=== PATIENT | female | born 1995 | race Caucasian/White ===

== ENCOUNTER 2016-06-09 19:56 | Inpatient (IN) ==
[2016-06-09] MEDS ORDERED: ONDANSETRON 4 MG/2 ML VIAL IV PRN (20:23)
[2016-06-09] MEDS ORDERED: BUTORPHANOL 2 MG/ML VIAL IV PRN (20:23)
[2016-06-09] MEDS ORDERED: fentaNYL 2 MCG/ROPIV 0.2% EPID 150 ML EPIDURAL SCH (20:42)
[2016-06-09] MEDS ORDERED: ePHEDrine 50 MG/ML AMP IV PRN (20:42)
[2016-06-09] MEDS ORDERED: CITRIC ACID/SODIUM CITRATE 30 ML UDCUP PO ONE (20:42)
[2016-06-09] MEDS ORDERED: FAMOTIDINE 20 MG/2 ML VIAL IV ONE (20:42)
[2016-06-09] MEDS: LACTATED RINGERS 1,000 ML IV SCH ×2 (20:43→21:45)
[2016-06-09 20:45] LABS: Basophils % 0.1 % (0.0-0.8); Eosinophils % 0.3 % (0.00-10.9); Hematocrit 29.8 VOL% (35.7-47.0); Hemoglobin 8.4 GM/DL (12.0-16.0); Immature Granulocytes % 1.9 %; Immature Granulocytes Absolute 0.21 #; Lymphocytes % 18.6 % (21.3-54.2); Mean Corpuscular HGB Conc 28.2 GM/DL (32-36); Mean Corpuscular Hemoglobin 23 PG (27-34); Mean Corpuscular Volume 81.6 FL (87-102); Monocytes # 0.7 10*3/uL (0.11-0.8); Monocytes % 6.4 % (1.7-12.7); Neutrophils # 7.9 10*3/uL (1.4-7.4); Neutrophils % 72.7 % (38.7-73.9); Platelet Count 209 T/CUMM (130-400); Red Blood Count 3.65 MC/CUMM (3.8-5.5); Red Cell Distribution Width 16.4 % (9.3-17.3); White Blood Count 10.8 T/CUMM (4-12)
[2016-06-09] MEDS ORDERED: AMPICILLIN INJ 2,000 MG in SODIUM CHLORIDE 0.9% 100 ML IV SCH (21:00)
[2016-06-09 22:23] LABS: Apearance,Urine CLEAR (Clear); Bilirubin,Urine Negative (Negative); Blood, Urine Negative (Negative); Glucose,Urine (UA) Negative (Negative); Ketones,Urine Negative (Negative); Mucus,Urine Occasional /LPF (Occasional); Nitrite,Urine Negative (Negative); Protein,Urine Negative; Squamous Epithelial Cell,Urine Occasional /HPF (0-10); Urine Color Yellow (Yellow); Urine Specific Gravity 1.017 (1.001-1.035); Urine Urobilinogen < 2.0 EU/DL (0.2-1.0); WBC,Urine 8 /HPF (0-6)
[2016-06-09 22:27] LABS: Barbiturates Screen,Urine Negative (Negative); Benzodiazepines Screen,Urine Negative (Negative); Cannabinoid Screen,Urine Negative (Negative); Opiate Screen,Urine Negative (Negative); Phencyclidine Screen,Urine Negative (Negative)
[2016-06-09] MEDS ORDERED: miSOPROStol 200 MCG TABLET ONE (22:37)
[2016-06-09] MEDS ORDERED: OXYTOCIN/LR 20 UNIT/1,000 ML BAG IV ONE ×2 (22:37→23:24)
[2016-06-09 22:53] LABS: HIV Antigen/Antibody Result Nonreactive (Nonreactive)
[2016-06-09] MEDS ORDERED: OXYTOCIN/LR 20 UNIT/1,000 ML BAG IV SCH (23:00)
[2016-06-09 23:04] LABS: Hepatitis B Surface Ag Quant 0.11 Index; Hepatitis B Surface Ag Result Negative (Negative)
[2016-06-09] MEDS ORDERED: ACETAMINOPHEN 325 MG TABLET PO PRN (23:24)
[2016-06-09] MEDS ORDERED: DIPH/TET/ACEL PERT BOOSTER VACCINE 0.5 ML VIAL IM ONE (23:24)
[2016-06-09] MEDS ORDERED: LANOLIN 50% CREAM 0.3 OZ TUBE TOP PRN (23:24)
[2016-06-09] MEDS ORDERED: oxyCODONE/ACETAMINOPHEN 5-325 MG TABLET PO PRN (23:24)
[2016-06-09] MEDS ORDERED: HYDROCORTISONE 2.5% RECTAL CREAM 30 GM TUBE TOP PRN (23:24)
[2016-06-09] MEDS ORDERED: BENZOCAINE 20%/MENTHOL 0.5% SPRAY 56 GM CAN TOP PRN (23:24)
[2016-06-09] MEDS ORDERED: RHO(D) IMMUNE GLOBULIN 300 MCG SYRINGE IM ONE (23:24)
[2016-06-09] MEDS ORDERED: WITCH HAZEL PADS 100/JAR TOP PRN (23:24)
[2016-06-09] MEDS ORDERED: MEASLES/MUMPS/RUBELLA VACCINE 0.5 ML VIAL SUBCUT ONE (23:24)
[2016-06-09] MEDS ORDERED: BISACODYL 10 MG SUPP RECTAL PRN (23:24)
--- NOTE | 2016-06-09 23:29 | Operative Note ---
Date of procedure: 06/09/16 Pre-op diagnosis: at 37 weeks, active labor Post-op diagnosis: same (with parturiton, occuput posterior) Procedure: Vaccuum assisted vaginal delivery The patient was prepped and drapped in the dorsal lithotomy position. Expulsive efforts were encouraged until the head was at a +2 station and arrested due to an occiput posterior presentation. The MitiVac was applied and the head rotated and delivered. The perineum was supported with the left hand while the delivery of the head controlled by the right hand. The naseopharynx was suctioned with a bulb syringe as soon as the head delivered. The head was directed downward and the anterior shoulder delivered. The head was lifted and the posterior shoulder delivered. The infant was delivered to the hips and held in place while the umbilical cord was clamped and cut. The remainder of the was delivered and then transferred to the warmer. Cord blood was obtained and the placenta allowed to seperated spontaneously. The placenta was then delivered Tamica flores. An intrauterine exam was done and pitocin administered. The cervix, vagina and perineum were examined and no lacerations found. She was returned to the supine position and her recovery begun. Anesthesia: epidural Surgeon / Physician: Guillaume Silva Estimated blood loss: none, other Specimens: other (placenta) Condition: stable Disposition: floor Results - Labs CBC & BMP: 06/09/16 20:35 Discharge Plan - Discharge Medications No Action Vits #90/Iron Fum/FA [ Formula Tablet] 1 tablet PO DAILY - Follow Up or Referral - Forms/Instructions
[2016-06-10] MEDS: IBUPROFEN 800 MG TABLET PO PRN ×2 (05:03→12:16)
[2016-06-10 05:26] LABS: Basophils % 0.1 % (0.0-0.8); Hemoglobin 7.5 GM/DL (12.0-16.0); Immature Granulocytes % 0.9 %; Immature Granulocytes Absolute 0.13 #; Lymphocytes % 13.4 % (21.3-54.2); Mean Corpuscular HGB Conc 28.8 GM/DL (32-36); Mean Corpuscular Hemoglobin 23 PG (27-34); Mean Corpuscular Volume 80.5 FL (87-102); Mean Platelet Volume 10.4 FL (9.6-12.0); Monocytes # 1.2 10*3/uL (0.11-0.8); Monocytes % 8.3 % (1.7-12.7); Neutrophils # 11.5 10*3/uL (1.4-7.4); Neutrophils % 77.3 % (38.7-73.9); Platelet Count 194 T/CUMM (130-400); Red Blood Count 3.23 MC/CUMM (3.8-5.5); Red Cell Distribution Width 16.3 % (9.3-17.3); White Blood Count 14.9 T/CUMM (4-12)
[2016-06-10 06:03] LABS: Microcytosis 1+; Platelet Estimate Normal
[2016-06-10 06:05] LABS: Anisocytosis 1+
[2016-06-10] MEDS: DOCUSATE SODIUM 100 MG CAPSULE PO SCH ×2 (12:16→21:00)
[2016-06-10] MEDS: oxyCODONE/ACETAMINOPHEN 5-325 MG TABLET PO PRN (22:27)
[2016-06-11] MEDS: IBUPROFEN 800 MG TABLET PO PRN (09:58)
[2016-06-11] MEDS: DOCUSATE SODIUM 100 MG CAPSULE PO SCH (09:59)
--- NOTE | 2016-06-11 13:36 | Discharge Summary ---
Hospital Course - Hospital Course Hospital Course: This patient was admitted in active labor without a significant history. Labor slowed down significantly due to a persistent occiput posterior arrest that was assisted with a vacuum extraction. Baby was delivered in good condition. There was a third-degree extension which was repaired in the routine fashion. Her postoperative course has been uneventful and she is discharged today with home instructions and prescriptions. Diagnosis - Discharge Diagnosis (1) Vaginal delivery Status: Acute (2) Occiput posterior arrest Status: Acute (3) Laceration, obstetrical, third degree Status: Acute Specialty Discharge - Follow Up or Referrals Follow up with: Dorian Tariq MD [Primary Care Provider] - 1 Month (Call to schedule appt with Dr. Tariq for 4-6 weeks post delivery. ) Discharge Plan - Discharge Medications New HYDROcodone/ACETAMIN 5-325 [[place] 5-325] 1 - 2 tablet PO Q6H PRN #30 tablet PRN Reason: Pain Severe (8-10) Ibuprofen 600 mg PO Q4-6H PRN #30 tablet PRN Reason: Abdominal Pain No Action Vits #90/Iron Fum/FA [ Formula Tablet] 1 tablet PO DAILY - Follow Up or Referral Follow Up: Dorian Tariq MD [Primary Care Provider] - 1 Month (Call to schedule appt with Dr. Tariq for 4-6 weeks post delivery. ) - Forms/Instructions Instructions: Vaginal Delivery (DC), Bleeding (DC) Exam - Constitutional Vitals: Period Temp Pulse Resp BP Sys/Sarmiento Pulse Ox Last 24 Hr 97.5 F-97.9 F 63-93 18-20 97-115/52-73 General appearance: no acute distress - Head Head exam: Present: normal inspection - Respiratory Respiratory exam: Present: clear to auscultation bilaterally. Absent: accessory muscle use - Cardiovascular Cardiovascular exam: Present: regular rate and rhythm - GI/Abdominal GI/Abdominal exam: Present: normal bowel sounds, soft. Absent: guarding, tenderness - Extremities Exam Extremities exam: Present: normal inspection - Back Exam Back exam: Present: normal inspection - Neurological Exam Neurological exam: Present: alert, oriented X3 - Psychiatric Psychiatric exam: Present: normal affect, normal mood - Skin Skin exam: Present: normal color, warm, dry DS: Provider Date of admission: 06/09/16 21:54 Primary care physician: Dorian Tariq MD Attending physician on admission: Guillaume Silva DO Consults: 06/09/16 20:23 Consult to Anesthesiology [CONS] Routine Consulting Provider: Reason for Anesthesiology: Epidural Consult Comment: Epidural for pain managment 06/09/16 23:24 Consult to Screening Representative [CONS] Routine Consult Screening Representative: Breast Feeding Discharging clinician: Guillaume Silva DO Expected date of discharge: 06/11/16
[2016-06-11] MEDS: oxyCODONE/ACETAMINOPHEN 5-325 MG TABLET PO PRN (14:02)
[2016-06-11 15:58] VITALS: BP 102/67
--- NOTE | 2016-06-13 10:48 | Pathology Report from [facility] ---
ACCESSION # : [id number] PATIENT NAME : Angelica Madrid ORDERING DR : RIKKI SHAH DO CLINICAL HX: IUP A@ 37 wks gestation, active labor POST-OP DX: Same SPECIMEN INFO: Placenta GROSS DESCRIPTION: Specimen received fresh labeled "ANGELICA MADRID & PLACENTA" consists of a 540 gram placenta measuring 15.8 x 17.1 x up to 3 cm. The membranes are pink garcia translucent with clotted blood present. The umbilical cord is pericentrally inserted, contains 3 vessels and is 34.3 cm. The surface is trevizo pink with 1.4 cm cystic area present as well as marginal subchorionic fibrin present measuring 5.9 x 4 cm. The maternal surface is hemorrhagic with intact cotyledons and adherent clotted blood. No gross abnormalities on sectioning. [employer] section submitted cassette A- membranes and cord and cassette B & maternal surfaces. DIAGNOSIS FOR ANGELICA MADRID: PLACENTA: Trivascular umbilical cord. Unremarkable membranes. Third trimester placenta with subchorionic fibrin deposition, small placental infarction, increase in syncytial clumping, and dystrophic calcification. SERVICE DATE: 06/12/2016 REPORT DATE: 06/13/2016 PATHOLOGIST: Donis Smith III, M.D. MTDD
== END 2016-06-11 15:45 | disposition home or self-care (01) | DRG 542 ==
LOC: N.LDOUT 19:56 → N.LD 20:02
PROVIDERS: ADMIT Obstetrics & Gynecology; ATTEND Obstetrics & Gynecology